=== PATIENT | female | born 1945 | race American Indian/Alaskan Native ===

== ENCOUNTER 2017-11-07 20:29 | Inpatient (IN) | payer MEDICARE ==
[2017-11-07 20:29] VITALS: BMI 30.2
--- NOTE | 2017-11-07 21:09 | C.PDOC ---
History Of Present Illness Presents to ED with complaints of 4/10 crampy LLQ abdominal pain that has worsened over the last 5-7days. Denies fever, nausea, vomiting diarrhea, or constipation. Time Seen by Provider: 11/07/17 21:09 Chief Complaint (Nursing): Back Pain History Per: Patient History/Exam Limitations: no limitations Onset/Duration Of Symptoms: Days (5-7) Current Symptoms Are (Timing): Still Present Quality Of Discomfort: Cramping Severity: Moderate Pain Scale Rating Of: 4 Previous Symptoms: None Associated Symptoms: None Exacerbating Factor(s): Nothing Recent travel outside of the [place]: No Past Medical History Reviewed: Historical Data, Nursing Documentation, Vital Signs Vital Signs: Last Vital Signs Temp 98.5 F 11/07/17 20:41 Pulse 81 11/07/17 21:49 Resp 20 11/07/17 21:49 BP 187/64 H 11/07/17 20:41 Pulse Ox 100 11/08/17 00:34 - Medical History PMH: HTN, Hypercholesterolemia Family History: States: No Known Family Hx - Social History Hx Alcohol Use: Yes Hx Substance Use: No - Immunization History Hx Tetanus Toxoid Vaccination: No Hx Influenza Vaccination: No Hx Pneumococcal Vaccination: No Review Of Systems Constitutional: Negative for: Fever, Chills Cardiovascular: Negative for: Chest Pain Gastrointestinal: Positive for: Abdominal Pain. Negative for: Nausea, Vomiting , Diarrhea, Constipation Physical Exam - Physical Exam Appears: Non-toxic, Other (Awake, Alert ) Skin: Warm, Dry Head: Normacephalic Eye(s): bilateral: Normal Inspection Oral Mucosa: Moist Chest: Symmetrical, No Tenderness Cardiovascular: Rhythm Regular Respiratory: No Rales, No Rhonchi, No Wheezing Gastrointestinal/Abdominal: Soft, Tenderness (Left upper quadrant ), No Guarding , No Rebound, Other (Midline surgical scar from previous hysterectomy) Neurological/Psych: Oriented x3 ED Course And Treatment - Laboratory Results Result Diagrams: 11/07/17 21:29 11/07/17 21:29 O2 Sat by Pulse Oximetry: 100 (Room air) Pulse Ox Interpretation: Normal Progress Note: Administered Pepcid and Toradol. Ordered CT Abdomen & Pelvis, blood work, and Urinalysis. Disposition Discussed With Dr.: Quinton Dempsey Comment: accepted the pt on h is service and took over the care at 1AM Doctor Will See Patient In The: Hospital Counseled Patient/Family Regarding: Studies Performed, Diagnosis - Disposition Disposition: HOSPITALIZED Disposition Time: 21:09 Condition: FAIR Forms: [facility] ([place]) - POA Present On Arrival: Poor Glycemic Control - Clinical Impression Clinical Impression: Abdominal pain, Acute diverticulitis - Scribe Statement The provider has reviewed the documentation as recorded by the Venancioibe Leander Barragan All medical record entries made by the Scribe were at my direction and personally dictated by me. I have reviewed the chart and agree that the record accurately reflects my personal performance of the history, physical exam, medical decision making, and the department course for this patient. I have also personally directed, reviewed, and agree with the discharge instructions and disposition. Decision To Admit - Pt Status Changed To: Hospital Disposition Of: Inpatient - Admit Certification Admit to Inpatient:: After my assessment, the patient will require hospitalization for at least two midnights. This is because of the severity of symptoms shown, intensity of services needed, and/or the medical risk in this patient being treated as an outpatient. - InPatient: Physician Admission Certification:: After my assessment, the patient will require hospitalization for at least two midnights. This is because of the severity of symptoms shown, intensity of services needed, and/or the medical risk in this patient being treated as an outpatient. - . Bed Request Type: Regular Admitting Physician: Quinton Dempsey Patient Diagnosis: Abdominal pain, Acute diverticulitis
[2017-11-07 21:35] LABS: BASO # 0.1 K/uL (0.0-0.2); BASO % 0.8 % (0.0-2.0); EOS # 0.2 K/uL (0.0-0.7); EOS % 2.4 % (0.0-4.0); LYMPH # 1.8 K/uL (1.0-4.3); LYMPH % 21.4 % (20.0-40.0); MEAN CELL VOLUME 82.3 fL (81.0-99.0); MEAN CORPUSCULAR HEMOGLOBIN 27.4 pg (27.0-31.0); MEAN CORPUSCULAR HGB CONC 33.2 g/dL (33.0-37.0); MEAN PLATELET VOLUME 8.6 fL (7.2-11.7); MONO # 0.7 K/uL (0.0-0.8); MONO % 8.1 % (0.0-10.0); NRBC % 0.1 % (0.0-2.0); RED CELL DISTRIBUTION WIDTH 13.3 % (11.5-14.5); WHITE BLOOD COUNT 8.3 K/uL (4.8-10.8)
[2017-11-07 21:52] LABS: RBC URINE < 1 /hpf (0-3); URINE BACTERIA RARE (<OCC); URINE BILIRUBIN NEGATIVE (NEGATIVE); URINE BLOOD NEGATIVE (NEGATIVE); URINE COLOR Colorless (YELLOW); URINE GLUCOSE (UA) NORMAL (Normal); URINE KETONE NEGATIVE (NEGATIVE); URINE LEUKOCYTE ESTERASE 1+ Leu/uL (Negative); URINE PROTEIN NEGATIVE (NEGATIVE); URINE UROBILINOGEN NORMAL mg/dL (0.2-1.0); WBC URINE 6 /hpf (0-5)
[2017-11-07 21:53] LABS: ALB/GLOB RATIO 1.1 (1.0-2.1); ALKALINE PHOSPHATASE 65 U/L (38-126); ALT/SGPT 42 U/L (9-52); AST/SGOT 28 U/L (14-36); BILIRUBIN,TOTAL 0.4 mg/dL (0.2-1.3); BLOOD UREA NITROGEN 13 mg/dL (7-17); CALCIUM 8.7 mg/dl (8.6-10.4); CARBON DIOXIDE 33 mmol/L (22-30); CHLORIDE 99 mmol/L (98-107); GFR AFRICAN-AMERICAN > 60; GLUCOSE,RANDOM 142 mg/dL (65-105); POTASSIUM 3.4 mmol/L (3.6-5.2); SODIUM 138 mmol/L (132-148); TOTAL PROTEIN 7.7 g/dL (6.3-8.3)
[2017-11-07] MEDS ORDERED: Iodixanol 320 MG/ML 200 ML BOTTLE IV ONE (22:44)
[2017-11-08] MEDS ORDERED: Ciprofloxacin 400mg/200ml D5W 400 MG/200 ML BAG IVPB STA (00:51)
[2017-11-08] MEDS ORDERED: metroNIDAZOLE IV 500 mg/100 ml 500 MG/100 ML BAG IVPB STA (01:06)
[2017-11-08] MEDS ORDERED: metroNIDAZOLE IV 500 mg/100 ml 500 MG/100 ML BAG ONE (01:14)
[2017-11-08] MEDS ORDERED: Ciprofloxacin 400mg/200ml D5W 400 MG/200 ML BAG IVPB ONE (02:17)
[2017-11-08 03:50] VITALS: RESP 20
[2017-11-08] MEDS ORDERED: HYDROmorphone 0.5 mg/0.5 ml ISec IVP STA (04:06)
[2017-11-08 07:50] VITALS: BP 95/56; PULSE 71; TEMP 98.6; O2SAT 97
[2017-11-08] MEDS: (Novolin R) Insulin Human Regular 100 units/ml vial SC SCH ×2 (07:55→12:14)
[2017-11-08] MEDS ORDERED: Potassium Ch 20mEq in D5W 1,000 ML IV SCH (09:15)
--- NOTE | 2017-11-08 09:51 | CP.PCM.HP ---
History of Present Illness - History of Present Illness History of Present Illness: CC: left abd pain 72 y/o female with HTN, NIDDM and last colonoscopy 3 yrs ago - was told has diverticula. Patient had increasing left abd pain over the week end. patient unable to eat and went to ER c/o got too severe. Patient now is almost gone, only sore. Ate a little breakfast & request to go home. Present on Admission - Present on Admission Any Indicators Present on Admission: Yes History of DVT/PE: No History of Uncontrolled Diabetes: No Urinary Catheter: No Decubitus Ulcer Present: No Review of Systems - Review of Systems Systems not reviewed;Unavailable: Acuity of Condition, Respiratory Distress - Constitutional Constitutional: Weakness. absent: Chills, Daytime Sleepiness, Excessive Sweating, Fever, Headache, Night Sweats - EENT Eyes: absent: Blurred Vision, Irritation, Loss of Peripheral Vision, Sees Flashes, Other Visual Disturbances Ears: absent: Ear Discharge, Ear Pain, Disequilibrium Nose/Mouth/Throat: absent: Nasal Congestion, Post Nasal Drip, Sinus Pressure, Bleeding Gums - Breasts Breasts: absent: Mass, Nipple Discharge, Skin Changes - Cardiovascular Cardiovascular: absent: Chest Pain, Diaphoresis, Dyspnea, Leg Edema, Palpitations, Pedal Edema - Respiratory Respiratory: absent: Dyspnea on Exertion, Chest Congestion, Excessive Mucous Production, Change in Mucous Color - Gastrointestinal Gastrointestinal: Abdominal Pain, Bloating. absent: Coffee Ground Emesis, Diarrhea, Heartburn, Hematochezia, Loose Stools, Nausea, Vomiting - Genitourinary Genitourinary: Nocturia. absent: Dysuria, Pyuria, Urinary Hesitance, Urinary Urgency - Musculoskeletal Musculoskeletal: absent: Abnormal Gait, Atrophy, Back Pain, Muscle Weakness, Myalgias, Neck Pain - Integumentary Integumentary: absent: Hirsutism, Lesions, New Lesions, Rash - Neurological Neurological: Weakness. absent: Abnormal Gait, Lack of Coordination, Loss of Vision, Restless Legs, Vertigo Past Patient History - Infectious Disease Hx of Infectious Diseases: None - Past Medical History & Family History Past Medical History?: Yes - Past Social History Smoking Status: Never Smoked - CARDIAC Hx Hypercholesterolemia: Yes Hx Hypertension: Yes - PULMONARY Hx Respiratory Disorders: No - NEUROLOGICAL Hx Neurological Disorder: No - HEENT Hx HEENT Problems: No - RENAL Hx Chronic Kidney Disease: No - ENDOCRINE/METABOLIC Hx Endocrine Disorders: Yes Hx Diabetes Mellitus Type 2: Yes - HEMATOLOGICAL/ONCOLOGICAL Hx Blood Disorders: No - INTEGUMENTARY Hx Dermatological Problems: No - MUSCULOSKELETAL/RHEUMATOLOGICAL Hx Falls: No - GASTROINTESTINAL Hx Gastrointestinal Disorders: Yes Hx Diverticulitis: Yes Hx Gastroesophageal Reflux: Yes - GENITOURINARY/GYNECOLOGICAL Hx Genitourinary Disorders: No - PSYCHIATRIC Hx Substance Use: No - SURGICAL HISTORY Hx Surgeries: Yes Hx Hysterectomy: Yes - ANESTHESIA Hx Anesthesia: Yes Hx Anesthesia Reactions: No Hx Malignant Hyperthermia: No Has any member of the family had a problem w/ anesthesia?: No Meds Allergies/Adverse Reactions: Allergies Allergy/AdvReac Type Severity Reaction Status Date / Time No Known Allergies Allergy Verified 11/07/17 20:45 Physical Exam - Constitutional Appears: No Acute Distress - Eye Exam Eye Exam: Normal appearance Pupil Exam: absent: Fixed, Irregular, NORMAL ACCOMODATION - ENT Exam ENT Exam: absent: Mucous Membranes Moist - Neck Exam Neck exam: Positive for: Full Rom. Negative for: Lymphadenopathy, Thyromegaly - Respiratory Exam Respiratory Exam: Clear to Auscultation Bilateral. absent: Rales, Rhonchi, Wheezes, Respiratory Distress - GI/Abdominal Exam GI & Abdominal Exam: Soft, Tenderness ((+) left lower and lumbar tenderness, no mass). absent: Guarding - Extremities Exam Extremities exam: Positive for: full ROM, normal capillary refill. Negative for : calf tenderness, joint swelling, pedal edema Results - Vital Signs Recent Vital Signs: Last Vital Signs Temp 98.6 F 11/08/17 07:46 Pulse 71 11/08/17 07:46 Resp 20 11/08/17 07:46 BP 95/56 L 11/08/17 07:46 Pulse Ox 97 11/08/17 07:46 - Labs Result Diagrams: 11/07/17 21:29 11/07/17 21:29 Labs: Laboratory Results - last 24 hr 11/07/17 11/07/17 11/07/17 21:29 21:29 21:29 WBC 8.3 RBC 4.61 Hgb 12.6 Hct 38.0 MCV 82.3 MCH 27.4 MCHC 33.2 RDW 13.3 Plt Count 247 MPV 8.6 Neut % (Auto) 67.3 Lymph % (Auto) 21.4 [place] % (Auto) 8.1 Eos % (Auto) 2.4 Baso % (Auto) 0.8 Neut # 5.6 Lymph # 1.8 [place] # 0.7 Eos # 0.2 Baso # 0.1 PT 10.9 INR 1.0 APTT 30 Sodium 138 Potassium 3.4 L Chloride 99 Carbon Dioxide 33 H Anion Gap 10 BUN 13 Creatinine 1.0 Est GFR ( Amer) > 60 Est GFR (Non-Af Amer) 55 POC Glucose (mg/dL) Random Glucose 142 H Calcium 8.7 Total Bilirubin 0.4 AST 28 ALT 42 Alkaline Phosphatase 65 Total Protein 7.7 Albumin 4.1 Globulin 3.7 Albumin/Globulin Ratio 1.1 Lipase 111 Urine Color Urine Clarity Urine pH Ur Specific [place] Urine Protein Urine Glucose (UA) Urine Ketones Urine Blood Urine Nitrate Urine Bilirubin Urine Urobilinogen Ur Leukocyte Esterase Urine WBC (Auto) Urine RBC (Auto) Ur Squamous Epith Cells Urine Bacteria 11/07/17 11/08/17 11/08/17 21:35 06:52 07:17 WBC RBC Hgb Hct MCV MCH MCHC RDW Plt Count MPV Neut % (Auto) Lymph % (Auto) [place] % (Auto) Eos % (Auto) Baso % (Auto) Neut # Lymph # [place] # Eos # Baso # PT INR APTT 30 Sodium Potassium Chloride Carbon Dioxide Anion Gap BUN Creatinine Est GFR ( Amer) Est GFR (Non-Af Amer) POC Glucose (mg/dL) 94 Random Glucose Calcium Total Bilirubin AST ALT Alkaline Phosphatase Total Protein Albumin Globulin Albumin/Globulin Ratio Lipase Urine Color Colorless Urine Clarity Clear Urine pH 6.0 Ur Specific [place] 1.004 Urine Protein Negative Urine Glucose (UA) Normal Urine Ketones Negative Urine Blood Negative Urine Nitrate Negative Urine Bilirubin Negative Urine Urobilinogen Normal Ur Leukocyte Esterase 1+ H Urine WBC (Auto) 6 H Urine RBC (Auto) < 1 Ur Squamous Epith Cells < 1 Urine Bacteria Rare - EKG Data EKG Interpreted by: Other (not done in ER) Assessment & Plan - Assessment and Plan (Free Text) Assessment: Ac Diverticulosis; Hypokalemia HTN, NIDDM Diuscharge on Cipro / flagyl x 2 wks Cont OPD meds
[2017-11-08] MEDS ORDERED: Pantoprazole 40 mg EC Tab PO SCH ×2 (10:00)
--- NOTE | 2017-11-08 10:22 | CT ---
CT abdomen and pelvis History: Left lower quadrant abdominal pain. Comparison: None available. Technique: Multiple contiguous axial images were performed through the abdomen and pelvis with the use of intravenous contrast. Subsequently, sagittal and coronal reformatted images were obtained. This CT exam was performed using one or more of the following dose reduction techniques: Automated exposure control, adjustment of the mA and/or kV according to patient size, and/or use of iterative reconstruction technique. Findings: Mild atelectasis at the lung bases. Multiple low-attenuation lesions throughout the liver ; for example, at the superior aspect of the right hepatic lobe there is a 2.4 centimeter low-attenuation demonstrating a Hounsfield unit attenuation of 30 suggestive for a cyst. Additional scattered smaller low-attenuation lesions likely representing cysts. Gallbladder is preserved. Spleen is preserved. Adrenal glands are preserved. Pancreas is preserved. Upper abdominal bowel is preserved. Right kidney: No calculi or hydronephrosis. Left Kidney: Mild fullness of the left renal collecting system. Urinary bladder is preserved. Scattered colonic diverticuli. At the level of the mid to distal descending colon, there is focal colonic thickening with adjacent pericolonic fat stranding suggestive for a moderate acute diverticulitis versus focal colitis. Post treatment interval followup would be helpful to exclude underlying lesion. Moderate diverticulosis is present in the sigmoid and descending colon. Normal appendix is identified. Post hysterectomy changes are noted. Mild gastric wall thickening. Urinary bladder is preserved. Grade 1 anterolisthesis of L3 on L4. Prominent degenerative changes in the lumbar spine with marked degenerative narrowing and sclerosis pronounced at the L3-4 level. Atherosclerotic calcification of the aorta. Impression: 1. Findings concerning for acute diverticulitis of the descending colon without gross perforation or abscess. Additional considerations may include a focal colitis versus additional etiology. Post treatment interval followup would be helpful to exclude underlying lesion. 2. Normal appendix. 3. Postsurgical changes of the pelvis. 4. Simple cysts of the liver. 5. Additional findings as above. These findings were preliminarily reported at 11:19 p.m. on 11/07/[address] Davis Marie from [facility] [employer].
--- NOTE | 2017-11-08 11:36 | RAD ---
PROCEDURE: CHEST RADIOGRAPH, 1 VIEW HISTORY: Cough COMPARISON: None available. FINDINGS: LUNGS: The lungs are well inflated and clear. PLEURA: No pneumothorax or pleural fluid seen. CARDIOVASCULAR: Normal. OSSEOUS STRUCTURES: No significant abnormalities. VISUALIZED UPPER ABDOMEN: Normal. OTHER FINDINGS: None. IMPRESSION: No active pulmonary disease.
[2017-11-08] MEDS ORDERED: Ciprofloxacin 400mg/200ml D5W 400 MG/200 ML BAG IVPB SCH (13:00)
[2017-11-10] MEDS ORDERED: Pneumococcal 23-Valent Vaccine IM ONE (10:00)
[2017-11-10] MEDS ORDERED: Influenza Vaccine 60 mcg/0.5 mL SYR (4YR UP) IM ONE (10:00)
== END 2017-11-08 12:26 | disposition home or self-care (01) | DRG 392 ==
LOC: C.ER 20:29 → UNDOADMIN 23:21 → C.9I 23:21 → C.9E 11-08 01:06 → C.3T 11-08 02:43
PROVIDERS: ADMIT Internal Medicine; ATTEND Internal Medicine
DX: K57.92 Diverticulitis of intestine, part unspecified, without perforation or abscess without bleeding (principal); E11.9 Type 2 diabetes mellitus without complications; E78.00 Pure hypercholesterolemia, unspecified; E87.6 Hypokalemia; I10 Essential (primary) hypertension; K21.9 Gastro-esophageal reflux disease without esophagitis; Z79.84 Long term (current) use of oral hypoglycemic drugs

== ENCOUNTER 2019-01-03 08:45 | Outpatient (CLI) | payer MEDICARE | END 2019-01-03 08:46 | disposition home or self-care (01) | LOC: C.MAMMO 08:46 ==